=== PATIENT | female | born 1975 | race Caucasian/White ===

== ENCOUNTER 2021-06-24 06:17 | Emergency (ER) | payer OTHER ==
[~2021-06-24 06:17] MED LIST: IBUPROFEN800 MG PO; MACROBID 100 M100 MG PO
[2021-06-24 07:41] LABS: RED BLOOD COUNT 4.72 M/UL (4.00-5.10); WHITE BLOOD COUNT 9.3 K/UL (4.5-11.0)
[2021-06-24 08:33] LABS: BUN/CREATININE RATIO 14 (0-10)
[2021-06-24] MEDS ORDERED: CYCLOBENZAPRINE5 MG PO (17:45)
[2021-06-24] MEDS ORDERED: CEPHALEXIN500 MG PO (17:45)
[2021-06-24] MEDS ORDERED: MOBIC15 MG PO (17:45)
== END 2021-06-24 18:00 | disposition home or self-care (01) ==
LOC: ER1 06:17
PROVIDERS: Physician Assistant
DX: R07.89 Other chest pain (principal); R79.1 Abnormal coagulation profile; N39.0 Urinary tract infection, site not specified; Z90.49 Acquired absence of other specified parts of digestive tract; Z79.899 Other long term (current) drug therapy; Z20.822 Contact with and (suspected) exposure to COVID-19
CPT/HCPCS: 71045; 78580; 80053; 81001; 82550; 82553; 83690; 83874; 84484; 84703; 85025; 85379; 87086; 93005; 96374; 96375; 99285; A9540; J1885; J2360; J2405; Q9967; U0002

== ENCOUNTER 2021-06-28 10:20 | Emergency (ER) | payer OTHER ==
[~2021-06-28 10:20] MED LIST changes: +CEPHALEXIN500 MG PO; +CYCLOBENZAPRINE5 MG PO; +MOBIC15 MG PO
[2021-06-28 11:09] LABS: HEMOGLOBIN 15.3 gm/dl (12.3-15.3); RED BLOOD COUNT 4.63 M/UL (4.00-5.10); WHITE BLOOD COUNT 9.1 K/UL (4.5-11.0)
[2021-06-28 11:36] LABS: BUN/CREATININE RATIO 14 (0-10)
== END 2021-06-28 14:30 | disposition home or self-care (01) ==
LOC: ER1 10:20
PROVIDERS: Emergency Medicine
DX: R07.9 Chest pain, unspecified (principal); R06.02 Shortness of breath; R05.9 Cough, unspecified
CPT/HCPCS: 71045; 80053; 81001; 82550; 82553; 83690; 83735; 83874; 84484; 84703; 85025; 93005; 96374; 96375; 99285; J1200; J2405; J7040